=== PATIENT | male | born 1980 | race Two or more races ===

== ENCOUNTER 2017-05-10 23:01 | Emergency (ER) | payer OTHER ==
--- NOTE | 2017-05-10 23:26 | PDOC ---
History of Present Illness - General History Source: Patient Exam Limitations: No Limitations - History of Present Illness Initial Comments: 05/10/17 23:42 The patient is a 37 year old male with no significant past medical history, who presents to the emergency department today with left shoulder pain since yesterday. The patient states that his pain began yesterday and has been progressively worsening. The patient states that he was not lifting or moving anything prior to onset and pain and denies any falls. The patient states that his pain is non-radiating and exacerbated on palpation and movement. He states that he took aleve with mild relief of symptoms. He endorses fever, dizziness, vision floaters, and headache. He denies cough, chest pain, or shortness of breath. <Christian Ibarra - Last Filed: 05/10/17 23:41> <Rena Garcia - Last Filed: 05/11/17 04:42> - General Chief Complaint: Pain, Acute Stated Complaint: LEFT SHOULDER PAIN Time Seen by Provider: 05/10/17 23:25 Past History <Christian Ibarra - Last Filed: 05/10/17 23:41> <Rena Garcia - Last Filed: 05/11/17 04:42> - Past Medical History Allergies/Adverse Reactions: Allergies Allergy/AdvReac Type Severity Reaction Status Date / Time No Known Allergies Allergy Verified 05/10/17 23:27 Home Medications: Ambulatory Orders Naproxen Sodium [Aleve] 220 mg PO BID 05/10/17 Oxycodone HCl/Acetaminophen [Percocet 5/325 -] 1 tab PO Q6H #14 tablet MDD 4 Review of Systems - Review of Systems Able to Perform ROS?: Yes Comments:: 05/10/17 23:42 GENERAL/CONSTITUTIONAL: (+) Fever No chills or weakness. HEAD, EYES, EARS, NOSE AND THROAT: (+) Vision floaters. No ear pain or discharge. No sore throat. CARDIOVASCULAR: No chest pain or shortness of breath. RESPIRATORY: No cough, wheezing, or hemoptysis. GASTROINTESTINAL: No vomiting, diarrhea or constipation. GENITOURINARY: No dysuria, frequency, or change in urination. MUSCULOSKELETAL: (+) Left shoulder pain. No neck or back pain. SKIN: No rash NEUROLOGIC: (+) Headache, dizziness. No loss of consciousness, or change in strength/sensation. ENDOCRINE: No increased thirst. No abnormal weight change. HEMATOLOGIC/LYMPHATIC: No anemia, easy bleeding, or history of blood clots. ALLERGIC/IMMUNOLOGIC: No hives or skin allergy. <Christian Ibarra - Last Filed: 05/10/17 23:41> *Physical Exam - Vital Signs Last Vital Signs Temp Pulse Resp BP Pulse Ox 98.3 F 83 18 122/78 97 05/10/17 23:10 05/10/17 23:10 05/10/17 23:10 05/10/17 23:10 05/10/17 23:10 - Physical Exam Comments: 05/10/17 23:42 GENERAL: Awake, alert, and fully oriented, in no acute distress HEAD: No signs of trauma EYES: PERRLA, EOMI, sclera anicteric, conjunctiva clear ENT: Auricles normal inspection, hearing grossly normal, nares patent, oropharynx clear without exudates. Moist mucosa NECK: Normal ROM, supple, no lymphadenopathy, JVD, or masses LUNGS: Breath sounds equal, clear to auscultation bilaterally. No wheezes, and no crackles HEART: (+) Mild tachycardia regular rhythm, normal S1 and S2, no murmurs, rubs or gallops ABDOMEN: Soft, nontender, normoactive bowel sounds. No guarding, no rebound. No masses EXTREMITIES: (+) Normal range of motion, no edema. No clubbing or cyanosis. No cords or erythema. Point tenderness on palpation. NEUROLOGICAL: Cranial nerves II through XII grossly intact. Normal speech, normal gait SKIN: Warm, Dry, normal turgor, no rashes or lesions noted. <Christian Ibarra - Last Filed: 05/10/17 23:41> ED Treatment Course - LABORATORY CBC & Chemistry Diagram: 05/10/17 23:50 05/10/17 23:50 <Rena Garcia - Last Filed: 05/11/17 04:42> Medical Decision Making - Medical Decision Making 05/11/17 01:12 Pt comes with exquisite left shoulder tenderness. He has no fever on arrival. He has had no injuries to the shoulder. 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 He has left shoulder tenderness. He has pain with point tenderness and ROM. XR pending. Labs show elevated WBC count, and elevated C-reactive protein. SED rate pending Chmistries are normal. 05/11/17 04:39 Case d/w Dr Friend, who will see patient in the office tomorrow or Friday. She is requesting Dr. Eli as orthopedist for patient; I will give pt his office # for shoulder pain workup. 05/11/17 04:40 Sed rate normal. 05/11/17 04:42 Patient Name: NIRAV CEJA THIS IS A PRELIMINARY REPORT FROM [facility] EXAM: X-ray left shoulder IMAGES: 2 EXAM DATE AND TIME: 2017-05-11 01:17:46 REASON FOR EXAM: 37-year-old male left shoulder pain. COMPARISON: None. FINDINGS: No fracture or dislocation. Joint spaces appear unremarkable. IMPRESSION No fracture or dislocation. THIS DOCUMENT HAS BEEN ELECTR <Rena Garcia - Last Filed: 05/11/17 04:42> *DC/Admit/Observation/Transfer - Attestations Scribe Attestion: 05/10/17 23:43 Documentation prepared by Christian Ibarra, acting as hospitalist medical director for Rena Garcia MD. <Christian Ibarra - Last Filed: 05/10/17 23:41> - Discharge Dispostion Admit: No <Rena Garcia - Last Filed: 05/11/17 04:42> Diagnosis at time of Disposition: Shoulder arthritis, Inflammation of shoulder joint - Discharge Dispostion Disposition: HOME Condition at time of disposition: Stable - Prescriptions Prescriptions: Oxycodone HCl/Acetaminophen [Percocet 5/325 -] 1 tab PO Q6H #14 tablet MDD 4 - Referrals Referrals: Jason Muro MD [Primary Care Provider] - Aurelio Eli MD [Staff Physician] - - Patient Instructions Printed Discharge Instructions: DI for Arthritis
[2017-05-10 23:27] VITALS: BP 122/78; PULSE 83; TEMP 98.3; BMI 28.3
[2017-05-10] MEDS ORDERED: SODIUM CHLORIDE 0.9% 500 ML INFUS.BAG IV ONE (23:33)
[2017-05-10] MEDS ORDERED: morphine CARPU-JECT 2 MG/1 ML DISP.SYRIN IVPUSH ONE (23:33)
[2017-05-10] MEDS ORDERED: morphine CARPU-JECT 2 MG/1 ML DISP.SYRIN ONE (23:42)
[2017-05-11 00:14] LABS: BASOPHIL 1.1 % (0-2.0); EOSINOPHIL 0.8 % (0-4.5); MCHC 34.4 g/dl (32.0-35.9); MEAN CELL VOLUME 84.3 fl (80-96); MEAN PLT VOLUME 8.8 fl (7.5-11.1); NEUTROPHILS 79.3 % (42.8-82.8); PLATELET COUNT 243 K/MM3 (134-434); RDW 13.7 % (11.9-15.9); WHITE BLOOD COUNT 15.9 K/mm3 (4.0-10.0)
[2017-05-11 00:45] LABS: INR 1.12 (0.82-1.09); PROTHROMBIN TIME (PATIENT) 12.4 SEC (9.98-11.88)
[2017-05-11 00:48] LABS: ACTIVATED PTT 30.7 SECONDS (26.9-34.4)
[2017-05-11 00:56] LABS: ANION GAP 11 (8-16); CALCIUM 8.7 mg/dL (8.5-10.1); CO2 23 mmol/L (21-32); GLUCOSE,RANDOM 109 mg/dL (74-106); SGOT/AST 13 U/L (15-37); SGPT/ALT 31 U/L (12-78)
[2017-05-11 00:58] LABS: ALK PHOS 95 U/L (45-117); BILIRUBIN,TOTAL 0.4 mg/dL (0.2-1.0); TOT PROT 7.1 g/dl (6.4-8.2)
== END 2017-05-11 02:15 | disposition home or self-care (01) ==
LOC: JER 23:01
PROC: 3E033NZ Introduction of Analgesics, Hypnotics, Sedatives into Peripheral Vein, Percutaneous Approach (ICD-10-PCS; principal; 2017-05-10)
DX: M13.812 Other specified arthritis, left shoulder (principal)
CPT/HCPCS: 36415; 73030-TC-LT; 73030-TC-RT; 80053; 85025; 85610; 85651; 85730; 86140; 96374; 99281-25

== ENCOUNTER 2019-11-07 23:52 | Emergency (ER) | payer OTHER ==
[2019-11-08 00:10] VITALS: BP 118/85; PULSE 80; BMI 29.9
[2019-11-08 00:11] VITALS: TEMP 97.1
[2019-11-08] MEDS ORDERED: LIDOCAINE 5% TOPICAL PATCH TP ONE (00:32)
--- NOTE | 2019-11-08 00:32 | PDOC ---
Attending Attestation - Resident Resident Name: Geovanny Carballo - ED Attending Attestation I have performed the following: I have examined & evaluated the patient, The case was reviewed & discussed with the resident, I agree w/resident's findings & plan - HPI HPI: 11/08/19 00:32 Pt comes with intense pain in his wrist. States that he has known rheumatoid arthritis - Physicial Exam PE: 11/08/19 01:05 Pt is afebrile HEENT normal Neuro normal no gross focal deficits. 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 Pt has no hx of gout; only RA (he is on methotrexate) - Medical Decision Making 11/08/19 01:07 Pt will be started on 10mg prednisone. I will give a month supply with refills and he can follow with his rhuematologist. Pt is already on methotrexate. 11/08/19 02:26 All labs are normal and he is stable to go home. Heart Score/ECG Review - ECG Intrepretation Rhythm: Regular Rhythm - [place]: Normal - P and VT Prominent R with upright T in V1 (true posterior [place]): No Delta Wave(s) Present: No WPW: No - QRS Poor R Wave Progression: No Q Wave Present: No - ST and T Early Repolarization: No Non Specific ST-T Wave changes: No Flattened T Waves: No Prolonged Q-T Interval: No - ECG Impressions Normal ECG: Yes Non-specific ST Elevation: No Ischemic Changes: No Bradycardia: No Torsades debbie Pointes: No WPW: No
[2019-11-08] MEDS ORDERED: DEXAMETHASONE LIQUID 0.5 MG/5 ML PO ONE (00:35)
[2019-11-08] MEDS ORDERED: LIDOCAINE 5% TOPICAL PATCH ONE (00:39)
[2019-11-08] MEDS ORDERED: DEXAMETHASONE 4 MG TABLET (FP) PO ONE (00:41)
[2019-11-08] MEDS ORDERED: DEXAMETHASONE PO ONE (00:45)
--- NOTE | 2019-11-08 00:49 | PDOC ---
History of Present Illness - General Chief Complaint: Syncope/Near Syncope Stated Complaint: Syncope/Near Syncope Time Seen by Provider: 11/08/19 00:21 History Source: Patient Exam Limitations: No Limitations - History of Present Illness Initial Comments: 39M PMH RA (MTX, Sulfasalamine) BIBEMS from friend's house after syncope and fall from sitting position. Pt was eating dinner, felt severe left wrist pain and subsequent feeling of losing consciousness. Fall off the chair to ground, woke up on ground w/ food on him. Denies head or neck pain. Denies preceeding cp /palpitations/sob, n/v. Denies blood stool. Has had a similar episode in the past with similar pain. Past History - Past Medical History Allergies/Adverse Reactions: Allergies Allergy/AdvReac Type Severity Reaction Status Date / Time No Known Allergies Allergy Verified 11/08/19 00:10 Home Medications: Ambulatory Orders Naproxen Sodium [Aleve] 220 mg PO BID 05/10/17 Oxycodone HCl/Acetaminophen [Percocet 5/325 -] 1 tab PO Q6H #14 tablet MDD 4 Prednisone 10 mg PO DAILY #30 tablet 11/08/19 CVA: No COPD: No - Psycho Social/Smoking Cessation Hx Smoking History: Never smoked Have you smoked in the past 12 months: No Hx Alcohol Use: No Drug/Substance Use Hx: No Substance Use Type: None Review of Systems - Review of Systems Able to Perform ROS?: Yes Comments:: CONSTITUTIONAL: Denies F / C HEENT: endorses syncope RESP: Denies SOB CARD: Denies chest pain, palpitations GI: Denies N / V / D, abdominal pain, bloody stool, inability to tolerate PO : Denies dysuria SKIN: Denies rashes NEURO: Denies numbness, tingling, weakness MSK: endorses left wrist pain *Physical Exam - Vital Signs Last Vital Signs Temp Pulse Resp BP Pulse Ox 97.1 F L 80 18 118/85 98 11/08/19 00:07 11/08/19 00:07 11/08/19 00:07 11/08/19 00:07 11/08/19 00:07 - Physical Exam GEN: NAD, comfortable. AAOx3. HEENT: NC/AT. No facial asymmetry. Normal voice. Supple neck w/ FROM, no TTP. CV: S1/S2, RRR, no m/r/g LUNG: CTAB, no wheezes, crackles, rales, rhonchi. GI: Soft, ndnt, +BS, no guarding, no rebound. No masses. MSK: +TTP of the left lateral wrist (light touch); +radial pulses b/l; PIP/swan neck deformities of the b/l fingers. SKIN: Warm, dry, no rashes appreciated. PSYCH: Normal mood and affect. NEURO: Moving all extremities well. symmetric reflexes. ED Treatment Course - LABORATORY CBC & Chemistry Diagram: 11/08/19 00:45 11/08/19 00:45 - RADIOLOGY Radiology Studies Ordered: Category Date Time Status CHEST X-RAY PORTABLE* [RAD] Stat Radiology 11/08/19 00:41 Ordered Medical Decision Making - Medical Decision Making 11/08/19 00:42 39M BIBEMS after syncopal episode. left wrist pain. DDx - vasovagal, arrhythmia, lytes, anemia, infection - CBC, CMP, CARD - CXR - EKG - Pain ctrl - In accordance w/ [facility] CT rules; imaging of head and neck are unnecessary at this point. 11/08/19 01:50 - labs reviewed reassuring - dc home w/ rheum + pcp f/u Discharge - Discharge Information Problems reviewed: Yes Clinical Impression/Diagnosis: Lightheaded Wrist pain Qualifiers: Laterality: left Qualified Code(s): M25.532 - Pain in left wrist Rheumatoid arthritis Qualifiers: Rheumatoid arthritis location: multiple sites Rheumatoid factor presence: unspecified presence Qualified Code(s): M06.9 - Rheumatoid arthritis, unspecified Condition: Stable Disposition: HOME - Admission No - Additional Discharge Information Prescriptions: Prednisone 10 mg PO DAILY #30 tablet - Follow up/Referral Referrals: Jason Muro MD [Primary Care Provider] - - Patient Discharge Instructions Additional Instructions: Follow up with your primary care doctor in the next 7 days regarding your symptoms. Follow up with your Translational Specialist in the next 7-14 days regarding your symptoms. We sent a prescription to your pharmacy; please pick it up and take as prescribed. Speak to your primary care doctor or chicken cleaner regarding this prescription and if they wish to continue it or not. Return to the nearest Emergency Department if you experience: - fainting - chest pain - shortness of breath - anything that concerns you - Post Discharge Activity
[2019-11-08] MEDS ORDERED: KETOROLAC TROMETHAMINE 60 MG/2 ML VIAL IM ONE (01:00)
[2019-11-08 01:05] LABS: BASO % 1.2 % (0-2.0); HEMATOCRIT 41.6 % (35.4-49); HEMOGLOBIN 14.2 GM/dL (11.7-16.9); LYMPH % 17.2 % (8-40); MCH 30.5 pg (25.7-33.7); MCHC 34.2 g/dl (32.0-35.9); MEAN CELL VOLUME 89.2 fl (80-96); MEAN PLT VOLUME 8.4 fl (7.5-11.1); MONO % 5.6 % (3.8-10.2); PLATELET COUNT 260 K/MM3 (134-434); RBC 4.67 M/mm3 (4.00-5.60); RDW 14.4 % (11.9-15.9); WHITE BLOOD COUNT 11.6 K/mm3 (4.0-10.0)
[2019-11-08] MEDS ORDERED: KETOROLAC TROMETHAMINE 60 MG/2 ML VIAL ONE (01:08)
[2019-11-08 01:37] LABS: ALBUMIN 3.4 g/dl (3.4-5.0); ALK PHOS 85 U/L (45-117); ANION GAP 8 MMOL/L (8-16); BILIRUBIN,TOTAL 0.2 mg/dL (0.2-1); BLOOD UREA NITROGEN 18.3 mg/dL (7-18); CALCIUM 8.4 mg/dL (8.5-10.1); CHLORIDE 106 mmol/L (98-107); CO2 23 mmol/L (21-32); CREATININE 1.2 mg/dL (0.55-1.3); GLUCOSE,RANDOM 154 mg/dL (74-106); SGOT/AST 19 U/L (15-37); SGPT/ALT 55 U/L (13-61); SODIUM 137 mmol/L (136-145); TOT PROT 6.8 g/dl (6.4-8.2)
--- NOTE | 2019-11-08 09:57 | EKG ---
Test Reason : Blood Pressure : / mmHG Vent. Rate : 085 BPM Atrial Rate : 085 BPM P-R Int : 146 ms QRS Dur : 082 ms QT Int : 354 ms P-R-T Axes : 066 054 064 degrees QTc Int : 421 ms NORMAL SINUS RHYTHM NORMAL ECG WHEN COMPARED WITH ECG OF 28-OCT-2003 01:52, NO SIGNIFICANT CHANGE WAS FOUND Confirmed by Javier Lizarraga ([id number]) on 11/08/2019 9:57:05 AM Referred By: Confirmed By:Javier Lizarraga
[2019-11-08] MEDS ORDERED: LIDOCAINE PATCH REMOVAL MC SCH (22:00)
== END 2019-11-08 02:08 | disposition home or self-care (01) ==
LOC: JER 23:52
PROC: 3E0233Z Introduction of Anti-inflammatory into Muscle, Percutaneous Approach (ICD-10-PCS; principal; 2019-11-07)
DX: M06.832 Other specified rheumatoid arthritis, left wrist (principal); R42 Dizziness and giddiness
CPT/HCPCS: 36415; 71045-TC-FY; 80053; 82550; 84484; 85025; 93005; 93010; 99285-25; J8540